=== PATIENT | male | born 1975 ===

== ENCOUNTER 2019-01-30 08:35 | Emergency (ER) | payer MEDICARE, OTHER ==
[~2019-01-30] VITALS: Ht 160 cm; Wt 79.4 kg
[~2019-01-30 08:35] MED LIST: CRUTCH3 USE; CYCL10 PO; HYDACE10B PO; HYDACE5 PO; NAPR500 PO
[2019-01-30] MEDS ORDERED: IBUP600 PO (08:47)
[2019-01-30] MEDS ORDERED: OMEPRAZOLE20 MG PO (08:47)
[2019-01-30] MEDS ORDERED: Acetaminophen-1 EAC1 PO (09:45)
[2019-01-30] MEDS ORDERED: IBUP800 PO (09:45)
[2019-01-30] MEDS ORDERED: CEPH500 PO (09:45)
== END 2019-01-30 09:57 | disposition home or self-care (01) ==
LOC: ER 08:35
DX: L03.011 Cellulitis of right finger (principal); Z79.899 Other long term (current) drug therapy; F17.200 Nicotine dependence, unspecified, uncomplicated
CPT/HCPCS: 73140; 99283-25

== ENCOUNTER 2020-03-27 17:54 | Emergency (ER) | payer OTHER ==
[~2020-03-27] VITALS: Ht 160 cm; Wt 68.0 kg
[~2020-03-27 17:54] MED LIST changes: +Acetaminophen-1 EAC1 PO; +CEPH500 PO; +IBUP600 PO; +IBUP800 PO; +OMEPRAZOLE20 MG PO
[2020-03-27 18:18] LABS: Source, Urine Clean Catch
[2020-03-27 18:20] LABS: Bilirubin, Urine Neg (Neg); Blood, Urine 5+ (Neg); Glucose Qualitative, Urine Neg (Neg); Ketones, Urine Neg (Neg); Leukocyte Esterase, Urine 3+ (Neg); Nitrite, Urine Neg (Neg); Protein, Urine 2+ (Neg); Urobilinogen, Urine NORM (Normal); pH, Urine 6.5 (5.0-8.0)
[2020-03-27 18:27] LABS: Appearance, Urine Hazy (Clear); Color, Urine Pale Yellow (P-Yellow)
[2020-03-27 18:29] LABS: White Blood Cells, Urine TNTC /hpf (0-5)
[2020-03-27 18:32] LABS: Bacteria Many /hpf; Squamous Epithelial Cells Not Seen /hpf (Few)
[2020-03-27] MEDS ORDERED: CEPH500 PO (19:15)
== END 2020-03-27 19:35 | disposition home or self-care (01) ==
LOC: ER 17:54
PROVIDERS: Emergency Medicine
DX: N39.0 Urinary tract infection, site not specified (principal); F17.210 Nicotine dependence, cigarettes, uncomplicated
CPT/HCPCS: 81001; 87086; 99283; A9270-GY